=== PATIENT | female | born 1955 | race Caucasian/White ===

== ENCOUNTER 2021-06-23 12:31 | Day surgery (SDC) | payer OTHER, MEDICARE ==
[2021-06-19 16:21] LABS: Absolute Lymphocytes (CBC) 2.8 K/uL (0.7-4.9); Hematocrit 41.9 % (36.0-45.0); Lymphocytes % 33.5 % (15.3-44.8); MPV 6.7 fL (7.6-11.3); Protime INR 0.97; RBC Red Blood Cell Count 4.25 M/uL (3.86-4.86)
[2021-06-19 16:31] LABS: BUN Blood Urea Nitrogen 11 mg/dL (7-18); Bicarbonate 29 mmol/L (21-32); Glucose Level 92 mg/dL (74-106); Potassium 3.8 mmol/L (3.5-5.1); Sodium Level 140 mmol/L (136-145)
--- NOTE | 2021-06-19 16:39 | RAD REPORT ---
EXAM DESCRIPTION: Krystyna Angeles (2 Views)06/19/2021 4:15 pm CLINICAL HISTORY: Preop for bladder surgery COMPARISON: 2018 FINDINGS: Lungs are hyperaerated. The lungs appear clear of acute infiltrate. The heart is normal size IMPRESSION: No acute abnormalities displayed
--- NOTE | 2021-06-20 15:13 | EKG ---
Test Date: 2021-06-19 Test Time: 14:59:31 Hourly Shift: ROXANNA MEASUREMENT RESULTS: Intervals: Rate: 64 DE: 158 QRSD: 88 QT: 412 QTc: 425 [place]: P: 76 DE: 158 QRS: 34 T: 60 INTERPRETIVE STATEMENTS: Normal sinus rhythm Septal infarct, age undetermined Abnormal ECG Compared to ECG 12/14/2017 10:00:38 Ventricular premature complex(es) no longer present Myocardial infarct finding still present Electronically Signed On 06-20-21 15:10:56 CDT by Augustin Granados
[2021-06-23] MEDS ORDERED: Ringers Lactate 1,000 ML IV ONE ×2 (14:28→17:39)
[2021-06-23] MEDS ORDERED: CEFAZOLIN/SWI 1gm 1 GM/10 ML SYR ONE (14:29)
[2021-06-23] MEDS ORDERED: propofoL 200 MG/20 ML VIAL IV ONE (15:53)
[2021-06-23] MEDS ORDERED: FENTANYL CITR 100 MCG/2 ML ONE (15:53)
[2021-06-23] MEDS ORDERED: MIDAZOLAM HCL 2 MG/2 ML INJ ONE (15:53)
[2021-06-23] MEDS ORDERED: ONDANSETRON 4 MG/2 ML VIAL ONE (15:54)
[2021-06-23] MEDS ORDERED: LIDOCAINE 1% MPF 5 ML VIAL ONE (16:08)
[2021-06-23] MEDS: GEMCITABINE HCL 26.3 ML IVPB ONE ×3 (16:30→17:35)
[2021-06-23] MEDS ORDERED: GLYCOPYRROLATE 0.2 MG/ML SYR ONE ×3 (16:51→18:02)
[2021-06-23] MEDS ORDERED: ROCURONIUM 50 MG/5 ML VIAL IV ONE (16:52)
[2021-06-23] MEDS ORDERED: NEOSTIGMINE 1 MG/ML -5 ML ONE ×2 (17:21→18:02)
[2021-06-23] MEDS ORDERED: OPIUM/BELLADONNA SUPPOS (30-16.2 MG) PR ONE ×2 (17:55→18:19)
[2021-06-23] MEDS ORDERED: HYDROCODONE/APAP 5/325 MG TAB PO PRN (17:55)
--- NOTE | 2021-06-23 19:22 | OP ---
Date of Procedure: 06/23/2021 Surgeon: LUIS ALBERTO KOHLI Preoperative Diagnosis: Bladder tumor. Postoperative Diagnosis: Bladder tumor between 3-5 cm in diameter. Principal Procedure: Cystoscopy and transurethral resection of a bladder tumor, greater than 3 cm in diameter. Intravesical instillation of 2 g gemcitabine in 50 cc normal saline Indication For Procedure: Ms. Kim presented to the Urology Clinic with gross hematuria and underwent cystoscopic evaluation and upper tract imaging revealing the presence of a bladder tumor without upper tract lesion. She was counseled about the need for operative resection of the tumor, and because the tumor was overlying the right ureteral orifice, I counseled her explicitly about the risk of obstruction and subsequent development of hydronephrosis requiring placement of a percutaneous nephrostomy tube intervally. Procedure In Detail: The patient was consented in the preoperative holding area before being transferred to the operative suite where general anesthesia was induced. She was given Ancef 2 g IV antimicrobial prophylaxis and pneumo boots were provided for DVT prophylaxis. She was placed in the lithotomy position, padded and secured to the table appropriately. Her genitalia were prepped using Hibiclens and she was draped in standard fashion. The case was begun using urethral sounds to dilate the meatus and fossa, then dilate the meatus to 28- Taiwanese. I then inserted the 26-Taiwanese resectoscope using a visual obturator into her bladder with ease. I surveyed the bladder in its entirety, and the papillary tumor emanating from the right hemitrigone obscured the ureteral orifice on the right side completely and extended into the right lateral wall as well as the posterior wall of the bladder on the right side. The left ureteral orifice was uninvolved. I thus employed a thin bipolar loop and normal saline to began resecting the tumor superficially at first and then subsequently resecting the deeper tissue layers. All visible papillary tumor was removed and an effort to remove any thickened nodular tissue within the base of the bladder was also performed. In the end, all visible tumor had been resected and the base of the tumor and all bleeding vessels were carefully fulgurated. All tumor chips were removed using an Asterwikifolio evacuator by direct visualization grasping. I then copiously irrigated bladder to remove any circulating tumor cells and again surveyed the bladder for any additional mucosal lesions. When none were noted, and the entire base of the bladder was fulgurated well, I again surveyed and found the left ureteral orifice intact and undisturbed, but the right ureteral orifice was not visible. I thus placed an 18-Taiwanese Powell catheter into her bladder with ease and with 15 mL of sterile water into the balloon. I then decompressed her bladder completely and manually irrigated it using a 60 mL catheter tip syringe. This removed one additional bladder chip, which was sent for pathologic analysis. Otherwise, the urine and the irrigant fluid were completely clear. Once her bladder was completely decompressed, I then instilled the gemcitabine 2 g in 50 mL of normal saline into the bladder via her catheter. The catheter was clamped after being connected to a leg bag, and she was awakened after being taken out of the lithotomy position. She was transferred to a stretcher and then to the recovery room in good condition with the gemcitabine chemotherapy remaining in situ. Complications: None. Discharge Disposition: We will keep the urethral catheter in place for the next 10-14 days to allow healing of the bladder and re-mucosalization to occur. She will keep the gemcitabine intravesical for at least the next 60-90 minutes preferably and rotate by 1/4 turn every 15 minutes once she is awake enough to do so in PACU. She should subsequently follow up with nurse practitioner, Grisel for a voiding trial in 10-14 days, and she can see me back in followup to discuss the pathology somewhere between 2-3 weeks from surgery, but after the voiding trial is completed, it will only be about 1 week later. She will be discharged with a prescription for Keflex 500 mg twice daily for antimicrobial prophylaxis as well as [place] for pain. MAUREEN/MYNOR Voice ID: [id number] Report ID: [id number] GOLDEN
[2021-06-23] MEDS ORDERED: HYDROCODONE/APAP 5/325 MG TAB ONE (19:38)
[2021-06-23 19:44] VITALS: BP 130/75; TEMP 98.2; O2SAT 99
== END 2021-06-23 19:35 | disposition home or self-care (01) ==
LOC: OR 12:31
PROVIDERS: ATTEND Urology
PROC: 3E0M705 Introduction of Other Antineoplastic into Peritoneal Cavity, Via Natural or Artificial Opening (ICD-10-PCS; 2021-06-23)
PROC: 0T5B8ZZ Destruction of Bladder, Via Natural or Artificial Opening Endoscopic (ICD-10-PCS; principal; 2021-06-23 14:45)
DX: C67.9 Malignant neoplasm of bladder, unspecified (principal); Z20.822 Contact with and (suspected) exposure to COVID-19
CPT/HCPCS: 93005; 87088; 85025; 87086; 80048; 36415; 85610; 88307; 71046; 52235; U0003; J2704; J2250; J3010; J2710 ×2; J0690; J9201; J7120 ×2; J2405; 88305

== ENCOUNTER 2021-08-11 07:41 | Day surgery (SDC) | payer OTHER, MEDICARE ==
[2021-08-11] MEDS ORDERED: GEMCITABINE HCL 26.3 ML IVPB ONE (07:45)
[2021-08-11 08:22] VITALS: BP 129/72; TEMP 98.3; O2SAT 100; BMI 24.3
[2021-08-11 08:32] LABS: Urine Appearance CLEAR (Clear); Urine Bilirubin NEGATIVE (Negative); Urine Blood NEGATIVE (Negative); Urine Color YELLOW (Yellow); Urine Glucose NEGATIVE (Negative); Urine Protein NEGATIVE (Negative); Urine Specific Gravity <=1.005 (1.005-1.030); Urine Urobilinogen 0.2 mg/dL (0.2-1.0)
[2021-08-11 08:36] LABS: Urine Microscopic Reflex ORDER UMIC
[2021-08-11 09:24] LABS: Urine Bacteria <20 /HPF (<20); Urine RBC <5 /HPF (NONE SEEN); Urine Yeast PRESENT (NONE SEEN)
[2021-08-11] MEDS ORDERED: OPIUM/BELLADONNA SUPPOS (30-16.2 MG) PR ONE (10:08)
--- NOTE | 2021-08-11 17:46 | OP ---
Surgeon: LUIS ALBERTO KOHLI Preprocedure Diagnosis: Grade 2 papillary urothelial carcinoma, noninvasive. Postprocedure Diagnosis: Grade 2 papillary urothelial carcinoma, noninvasive. Principle Procedures: 1.Placement of urethral Powell catheter. 2.Instillation of intravesical gemcitabine chemotherapy 2 g in 50 cc normal saline. Indication For Procedure: Ms. Kim presented to the Urology Clinic with evidence of gross hematuri a and a large bladder tumor found to be superficial and noninvasive. It was grade 2 of 3, which trad itionally would have been considered high-grade, but now may be reassessed as intermediate grade dise ase. As a result, she was counseled about options for management to include intravesical chemotherap y versus immunotherapy, and she elected to proceed with intravesical gemcitabine chemotherapy, which I think would treat her best given the relatively intermediate grade nature of this noninvasive disea se. She presents today for a #1 of 6 weekly doses of an induction course of intravesical gemcitabine chemotherapy. Procedure In Detail: The patient was consented before being placed supine on the procedure table. H er genitalia were prepped using Betadine and draped in standard fashion. A 16-Maori urethral Powell catheter was placed into her bladder with ease and with return of clear urine. Her bladder was decom pressed of urine, and during that time, blue towels were placed around the edge of the urethral meatu s covering her introitus in the event of spillage via bladder spasm or other removal of the catheter allowing the chemotherapy to contact her skin. She had previously been given a dose of rectal B and O suppository to manage the bladder spasms and any pelvic pain. A urinalysis had been performed in a dvance, which showed evidence of trace leukocyte esterase, but less than 5 white blood cells per high -power field and no blood. As a result, once her bladder was decompressed, I retrograde instilled 2 g of gemcitabine and 50 cc normal saline and clamped the catheter. I then connected the catheter and clamped to a leg bag and the patient was then allowed to rotate by 1/4 turn every 15 minutes over e course of the next 60 minutes with a target to maintain the chemotherapy in her bladder for at leas t 90 minutes. Appropriate precautions of a barrier nature including face jensen, gowns and gloves w ere utilized throughout the procedure, and the chemotherapeutic waist was discarded in the yellow lilo motherapy bins as appropriate. The patient tolerated the procedure well and without complications. She was then discharged home in good condition. Disposition: She should follow up next week for instillation #2 of 6 of her induction course of gemc itabine. Subsequent cystoscopic evaluation should occur 3 months from her TURBT performed on 021. MAUREEN/MYNOR Voice ID: [id number] Report ID: [id number]
== END 2021-08-11 13:05 | disposition home or self-care (01) ==
LOC: DS 07:41
PROVIDERS: ATTEND Urology
PROC: 3E0M705 Introduction of Other Antineoplastic into Peritoneal Cavity, Via Natural or Artificial Opening (ICD-10-PCS; principal; 2021-08-11)
DX: D09.0 Carcinoma in situ of bladder (principal)
CPT/HCPCS: 87088; 87086; 96372; 51720; J9201; 81003; 81015

== ENCOUNTER 2021-11-24 09:30 | Day surgery (SDC) | payer OTHER, MEDICARE ==
--- NOTE | 2021-11-23 11:35 | EKG ---
Test Date: 2021-11-20 Test Time: 14:52:33 Energy Attorney: ROXANNA MEASUREMENT RESULTS: Intervals: Rate: 58 NM: 164 QRSD: 82 QT: 416 QTc: 408 [place]: P: 52 NM: 164 QRS: 12 T: 46 INTERPRETIVE STATEMENTS: Sinus bradycardia Nonspecific ST abnormality Abnormal ECG Compared to ECG 06/19/2021 14:59:31 ST (T wave) deviation now present Sinus rhythm no longer present Myocardial infarct finding no longer present Electronically Signed On 11-23-21 11:30:49 INSTRUMENT REPAIRER HELPER by Augustin Granados
[~2021-11-24 09:30] MED LIST: GEMCITABINE HCL 26.3 ML IVPB ONE
[2021-11-24] MEDS ORDERED: Ringers Lactate 1,000 ML IV ONE (09:54)
[2021-11-24] MEDS ORDERED: CEFAZOLIN/NS 1gm 1 GM/50 ML BAG ONE (09:55)
[2021-11-24] MEDS ORDERED: ACETAMINOPHEN 500 MG TAB ONE (11:27)
[2021-11-24] MEDS ORDERED: DIAZEPAM 5 MG TABLET ONE (11:27)
[2021-11-24] MEDS ORDERED: propofoL 200 MG/20 ML VIAL IV ONE (11:29)
[2021-11-24] MEDS ORDERED: dexAMETHasone 10 MG/ML VIAL ONE (11:29)
[2021-11-24] MEDS ORDERED: MIDAZOLAM HCL 2 MG/2 ML INJ ONE (11:29)
[2021-11-24] MEDS ORDERED: KETOROLAC 30 MG/ML INJ ONE (11:29)
[2021-11-24] MEDS ORDERED: FENTANYL CITR 100 MCG/2 ML ONE (11:29)
[2021-11-24] MEDS ORDERED: LIDOCAINE 1% MPF 5 ML VIAL ONE ×2 (11:29→11:31)
[2021-11-24] MEDS ORDERED: ONDANSETRON 4 MG/2 ML VIAL ONE (11:30)
[2021-11-24] MEDS ORDERED: OPIUM/BELLADONNA SUPPOS (30-16.2 MG) PR ONE ×2 (12:06→12:10)
[2021-11-24] MEDS ORDERED: PHENAZOPYRIDINE 100MG TAB PO ONE (12:06)
[2021-11-24] MEDS ORDERED: TRAMADOL 37.5mg/APAP 325mg PER TAB PO ONE (12:06)
[2021-11-24] MEDS ORDERED: EPHEDRINE SULF 50 MG/ML VIAL ONE (12:44)
[2021-11-24 13:07] VITALS: O2SAT 100
--- NOTE | 2021-11-24 13:40 | OP ---
Surgeon: LUIS ALBERTO KOHLI Preoperative Diagnoses: 1.Urothelial carcinoma of the bladder. 2.Bladder lesion. Postoperative Diagnoses: 1.Urothelial carcinoma of the bladder. 2.Bladder lesion. Principle Procedures: 1.Cystoscopy with bladder biopsies and fulguration. 2.Placement of urethral Powell catheter. 3.Instillation of gemcitabine 2 g and 50 cc normal saline intravesical chemotherapy. Indication For Procedure: Ms. Kim is a 66-year-old woman, who presented to the Urology Clinic wit h gross hematuria and evidence of a bladder tumor. She underwent resection of that tumor revealing n oninvasive urothelial carcinoma of the bladder. She subsequently underwent induction of gemcitabine chemotherapy over the course of 6 weeks, which she tolerated well. Subsequent cystoscopically follow up was performed and did not reveal any evidence of regrowth of any papillary tumor throughout the bl adder, but there was a tiny little erythematous spot approximately 2 mm around the right ureteral elen fice. Because we could not be certain as to the significance of this lesion seen, urine genetic test ing using Cxbladder monitor was performed and did suggest a slight increased today propensity for the re being urothelial carcinoma. As a result, we recommended biopsy of the lesion. Following that, nafisa monge would receive the intravesical gemcitabine as she would be due for her monthly maintenance dose. Procedure In Detail: The patient was consented in the preoperative holding area before being transfe rred to the operative suite where general anesthesia was induced. She was given Ancef IV antimicrobi al prophylaxis and pneumo boots were provided for DVT prophylaxis. She was placed in the lithotomy p osition, padded and secured to the table appropriately. Her genitalia were prepped using Hibiclens a nd draped in standard fashion. The case was begun using a 22-Faroese rigid cystoscope to traverse the urethra and into the bladder with ease. The bladder was surveyed in its entirety, and there were no papillary mucosal lesions, foreign bodies or stones noted throughout. As had previously been observ ed, lateral to the right ureteral orifice was an approximately 2 mm erythematous patch which on close r inspection appeared to be hemosiderin likely within the mucosa. This had not changed significantly from when it was observed preoperatively in an outpatient cystoscopy. The area along with other are as around the ureteral orifice where the tumor had been resected was biopsied and 3 specimens were se nt for pathologic analysis. The area was then fulgurated using a Bugbee electrode at a cautery of 30 . Once hemostatic, I then placed an 18-Faroese catheter into her bladder with ease and placed 15 cc o f sterile water in the balloon. The catheter was then allowed to decompress the bladder, and I retro grade instilled 2 g of gemcitabine and 50 cc normal saline. She tolerated the instillation well and the procedure went along without any complications. Of note, I applied a belladonna and opiate suppo sitory intraanally prior to instillation of the chemotherapy. The catheter was clamped and connected to a leg bag for ease of drainage later. The catheter and the leg bag were wrapped in fluid in perm eable drapery, and her genitalia was toweled off using green towels to absorb any leakage. The patie nt was then taken out of the lithotomy position, awakened from general anesthesia, transferred to a virtua marlton, and then transferred to the recovery room in good condition. Complications: None. Discharge Disposition: She will maintain the intravesical chemotherapy for 60 minutes minimum to 90 minutes desired. This will then be evacuated, and she may be discharged per protocol. Followup may then be established in 2-3 weeks' time to discuss results of the pathology. Subsequent maintenance g emcitabine will be planned 1 month from this procedure, around December 22, 2021. MAUREEN/MYNOR Voice ID: [id number] Report ID: [id number]
[2021-11-24 15:39] VITALS: BP 89/76; TEMP 98.5
== END 2021-11-24 14:25 | disposition home or self-care (01) ==
LOC: OR 09:30
PROVIDERS: ATTEND Urology
PROC: 3E0K805 Introduction of Other Antineoplastic into Genitourinary Tract, Via Natural or Artificial Opening Endoscopic (ICD-10-PCS; 2021-11-24)
PROC: 0TBB8ZX Excision of Bladder, Via Natural or Artificial Opening Endoscopic, Diagnostic (ICD-10-PCS; principal; 2021-11-24 10:30)
DX: C67.9 Malignant neoplasm of bladder, unspecified (principal); N32.9 Bladder disorder, unspecified; Z20.822 Contact with and (suspected) exposure to COVID-19
CPT/HCPCS: 87086; 87088; 88305; 93005; J0690; J1100; J2250; J2405; J2704; J3010; J7120; J9201; U0003

== ENCOUNTER 2021-12-22 08:41 | Day surgery (SDC) | payer OTHER, MEDICARE ==
[2021-12-22] MEDS ORDERED: GEMCITABINE HCL 26.3 ML IVPB ONE (09:00)
[2021-12-22 09:07] LABS: Urine Appearance CLEAR (Clear); Urine Bilirubin NEGATIVE (Negative); Urine Blood NEGATIVE (Negative); Urine Color YELLOW (Yellow); Urine Glucose NEGATIVE (Negative); Urine Protein NEGATIVE (Negative); Urine Specific Gravity <=1.005 (1.005-1.030); Urine Urobilinogen 0.2 mg/dL (0.2-1.0)
[2021-12-22] MEDS ORDERED: OPIUM/BELLADONNA SUPPOS (30-16.2 MG) PR ONE (09:08)
[2021-12-22 09:22] LABS: Urine Microscopic Reflex NO UMIC
[2021-12-22 09:25] VITALS: BP 126/92; TEMP 96; O2SAT 99; BMI 23.3
--- NOTE | 2021-12-22 20:00 | PN ---
Preoperative Diagnosis: Urothelial carcinoma of the bladder, noninvasive. Principal Procedure: 1.Instillation of intravesical gemcitabine chemotherapy 2 g in 50 cc normal saline. 2.Insertion of urethral Powell catheter. Indication For Procedure: Ms. Kim has undergone transurethral resection of a large bladder tumor occupying her right lateral wall of the bladder. The pathology revealed noninvasive urothelial carci noma, and she was counseled on options for management and prevention of recurrence. Intravesical lilo motherapy with gemcitabine was selected, and she completed an induction course. Subsequent followup cystoscopic evaluation revealed the presence of a slightly pigmented erythematous region lateral to t he right ureteral orifice; so, repeat cystoscopy and biopsies were performed along with intravesical gemcitabine administration a month ago. This revealed only hemosiderin pigment without evidence of m alignancy; so, she presents today for the second monthly instillation targeting 1 year from the initi ation of the induction course of monthly gemcitabine instillations. Description Of Procedure: The patient was consented before being placed supine on the procedure tabl e. Her genitalia were prepped with Betadine and draped in standard fashion. A 16-Kuwaiti urethral Fo douglas catheter was placed into her bladder, and 20 cc of sterile water was placed in the balloon. The bladder was decompressed of fluid and urine, and then her genitalia were toweled off. A fluid imperm eable drape was placed over her body and a splash free facial was used to cover her head. I then eliza floyd instilled gemcitabine 2 g and 50 cc normal saline into her bladder with ease, and she tolerat ed the procedure well. She was then allowed to rotate by 1/4 turn over the course of the next hour t argeting between 60 and 90 minutes of instillation. The catheter was then unclamped, the fluid evacu ated into a leg bag, and the catheter removed. The patient tolerated the procedure well and without complications. She was discharged from the day surgery procedure area in good condition. Discharge Disposition: Follow up in 1 month for the next intravesical gemcitabine instillation. Rep eat cystoscopy in early February. MAUREEN/MODL Voice ID: [id number] Report ID: [id number]
== END 2021-12-22 12:55 | disposition home or self-care (01) ==
LOC: DS 08:41
PROVIDERS: ATTEND Urology
PROC: 3E0K705 Introduction of Other Antineoplastic into Genitourinary Tract, Via Natural or Artificial Opening (ICD-10-PCS; principal; 2021-12-22)
DX: D09.0 Carcinoma in situ of bladder (principal)
CPT/HCPCS: 81003; 96365; 96366; 51720; J9201

== ENCOUNTER 2022-02-09 11:10 | Day surgery (SDC) | payer OTHER, MEDICARE ==
[2022-02-09 11:39] LABS: Urine Appearance Clear (Clear); Urine Bilirubin Negative (Negative); Urine Blood Negative (Negative); Urine Color Yellow (Yellow); Urine Glucose Negative (Negative); Urine Protein Negative (Negative); Urine Specific Gravity 1.015 (1.005-1.030); Urine Urobilinogen 0.2 mg/dL (0.2-1.0)
[2022-02-09] MEDS ORDERED: OPIUM/BELLADONNA SUPPOS (30-16.2 MG) PR ONE (11:41)
[2022-02-09 11:47] LABS: Urine Microscopic Reflex NO UMIC
[2022-02-09] MEDS ORDERED: GEMCITABINE HCL 26.3 ML IVPB ONE (12:00)
[2022-02-09 16:00] VITALS: BP 112/75; TEMP 98.1; O2SAT 99; BMI 23.3
== END 2022-02-09 14:20 | disposition home or self-care (01) ==
LOC: DS 11:10
PROVIDERS: ATTEND Urology
PROC: 3E0K705 Introduction of Other Antineoplastic into Genitourinary Tract, Via Natural or Artificial Opening (ICD-10-PCS; principal; 2022-02-09)
DX: C67.9 Malignant neoplasm of bladder, unspecified (principal); Z88.6 Allergy status to analgesic agent; Z88.1 Allergy status to other antibiotic agents
CPT/HCPCS: 81003; 96365; 51720; J9201

== ENCOUNTER 2025-05-31 08:54 | Day surgery (SDC) | payer OTHER, MEDICARE ==
[2025-05-29 14:10] LABS: Absolute Lymphocytes (CBC) 2.1 K/uL (0.7-4.9); Hematocrit 42.2 % (36.0-45.0); Hemoglobin 14.3 g/dL (12.0-15.0); MCH 33.0 pg (27.0-35.0); MCHC 33.8 g/dL (32.0-36.0); MCV 97.6 fL (80-100); MPV 7.0 fL (7.6-11.3); Nucleated RBC Absolute Count 0.0 (0-0); Nucleated Red Blood Cells % 0.0 % (0-0); RBC Red Blood Cell Count 4.33 M/uL (3.86-4.86); White Blood Count 7.90 thou/uL (4.3-10.9)
[2025-05-29 14:26] LABS: Anion Gap 8.9 mEq/L (5.0-15.0); BUN Blood Urea Nitrogen 11.0 mg/dL (7-18); Glucose Level 109.0 mg/dL (74-106); Potassium 3.9 mEq/L (3.5-5.1)
[2025-05-31] MEDS: Ringers Lactate 1,000 ML IV ONE (09:30)
[2025-05-31] MEDS: OXYMETAZOLINE HCL 0.05% 30ML NAS ONE (09:40)
[2025-05-31] MEDS ORDERED: LIDOCAINE HCL/EPINEPHRINE 20 ML MDV ONE (10:14)
[2025-05-31] MEDS ORDERED: BUPIVACAINE 0.5% PF 10 ML VIAL ONE (10:15)
[2025-05-31] MEDS ORDERED: FENTANYL CITR 100 MCG/2 ML ONE (10:39)
[2025-05-31] MEDS ORDERED: LIDOCAINE 1% MPF 5 ML VIAL ONE (10:39)
[2025-05-31] MEDS ORDERED: MIDAZOLAM HCL 2 MG/2 ML INJ ONE (10:48)
[2025-05-31] MEDS ORDERED: ROCURONIUM 50 MG/5 ML VIAL IV ONE (10:48)
--- NOTE | 2025-05-31 11:48 | P.OP ---
Process Chemist: NONE,NONE Preoperative diagnosis: Nasopharyngeal mass Postoperative diagnosis: Same Primary procedure: Nasopharyngoscopy with biopsy of visible lesion Anesthesia: General Estimated blood loss: 5 mL Specimen: Nasopharyngeal mass Findings: Prominent mass of roof of nasopharynx, R SER thick mucoid drainage Operative Technique: After adequate plane of anesthesia was achieved via endotracheal intubation, the head of bed was turned 90 degrees. The nasal hairs were not prominent and did not require trimming. The 0 degree endoscope was used to perform an nasopharyngoscopy. The inferior meatus, inferior turbinate, middle meatus and middle turbinate were normal on both the right and left side. The left sphenoethmoid recess was unremarkable. The right sphenoethmoid recess demonstrated thick mucopurulent appearing fluid. The eustachian tube openings and torus tubarius appeared unremarkable. There was a well-healed presumed adenoidectomy scar noted in the midline at the midportion of the nasopharynx. Superior to this scar, there was prominent tissue on the roof of the nasopharynx which occupied the right and left side but did not appear to extend significantly into the fossa of Rosenmuller. The tissue appeared slightly cystic on the left side. Photodocumentation was obtained. A BlaSleek Audioley forcep was used to obtain a biopsy from the medial and right aspect of the mass. Afrin-soaked pledget was applied to the biopsy site to aid in hemostasis. While awaiting effect of medication and pressure, a straight suction was used to clear the sphenoethmoid recess. There was no visible mass extending into the sphenoethmoid recess. Afrin soaked pledget was applied to the sphenoethmoid recess due to mucosal oozing after suctioning. After several minutes the pledgets were removed and the biopsy site was cauterized using suction Bovie cautery. Overall blood loss was minimal. Due to oozing in the right sphenoethmoid recess, a PosiSep resorbable nasal dressing was passed into the right nasal cavity and advanced into the sphenoethmoid recess and saturated with sterile saline. On reexamination the area appeared hemostatic and the procedure was concluded. The patient was returned to care of anesthesia for awakening extubation in the operating room which proceeded without complication. Complications: None Implants: None Fluids & blood products: See anesthesia record Transferred to: Recovery Room Condition: Good
[2025-05-31] MEDS: MORPHINE 2 MG/ML SYR ONE (12:00)
[2025-05-31 12:19] VITALS: O2SAT 98
[2025-05-31 12:43] VITALS: BP 146/66; TEMP 97.6
== END 2025-05-31 13:28 | disposition home or self-care (01) ==
LOC: OR 08:54
PROVIDERS: ATTEND Otolaryngology
PROC: 09BN8ZX Excision of Nasopharynx, Via Natural or Artificial Opening Endoscopic, Diagnostic (ICD-10-PCS; principal; 2025-05-31 10:15)
DX: J34.89 Other specified disorders of nose and nasal sinuses (principal)
CPT/HCPCS: 42804; 93005; 85025; 80048; 36415; 88305; J2704; J2003; J3010; J2270; J7120; J2250

== ENCOUNTER 2025-07-23 08:19 | Day surgery (SDC) | payer OTHER, MEDICARE ==
[2025-07-16 10:43] LABS: Absolute Lymphocytes (CBC) 2.1 K/uL (0.7-4.9); Hematocrit 39.9 % (36.0-45.0); Hemoglobin 13.6 g/dL (12.0-15.0); MCH 33.7 pg (27.0-35.0); MCHC 34.1 g/dL (32.0-36.0); MCV 98.9 fL (80-100); MPV 7.6 fL (7.6-11.3); Nucleated RBC Absolute Count 0.0 (0-0); Nucleated Red Blood Cells % 0.0 % (0-0); RBC Red Blood Cell Count 4.03 M/uL (3.86-4.86); White Blood Count 7.60 thou/uL (4.3-10.9)
[2025-07-16 10:49] LABS: Sqamous Epithelial <5 /HPF (None Seen); Urine Crystals Unidentified Few /HPF (None Seen); Urine Culture Reflex Order REFLEXED; Urine Microscopic Reflex YN ORDER UMIC; Urine WBC Clump Moderate /HPF (None Seen); Urine Yeast (Budding) Occasional /HPF (None Seen)
[2025-07-16 10:49] LABS: PT Prothrombin Time 11.2 SECONDS (10-13.0); Protime INR 0.99
[2025-07-16 11:00] LABS: Anion Gap 9.9 mEq/L (5.0-15.0); BUN Blood Urea Nitrogen 9.0 mg/dL (7-18); Glucose Level 98.0 mg/dL (74-106); Potassium 3.9 mEq/L (3.5-5.1)
[2025-07-23] MEDS: Ringers Lactate 1,000 ML IV ONE (08:45)
[2025-07-23] MEDS ORDERED: ONDANSETRON 4 MG/2 ML VIAL ONE (09:29)
[2025-07-23] MEDS ORDERED: LIDOCAINE 1% MPF 5 ML VIAL ONE (09:29)
[2025-07-23] MEDS ORDERED: MIDAZOLAM HCL 2 MG/2 ML INJ ONE (09:29)
[2025-07-23] MEDS ORDERED: FENTANYL CITR 100 MCG/2 ML ONE (09:29)
[2025-07-23] MEDS ORDERED: SUCCINYLCHOLINE 200 MG/10 ML 200 MG/10 ML SYR IV ONE (09:32)
[2025-07-23] MEDS: GENTAMICIN 80 MG/100 ML BAG 160 MG/200 ML BAG IV ONE (10:14)
[2025-07-23] MEDS ORDERED: EPHEDRINE SULF 50 MG/ML VIAL ONE (10:21)
[2025-07-23] MEDS: AMPICILLIN SODIUM 2 GM/VIAL VIAL ONE (10:25)
[2025-07-23] MEDS: MITOMYCIN IV ONE (10:46)
[2025-07-23] MEDS: NA CHLORIDE 0.9% IV ONE (10:46)
[2025-07-23] MEDS ORDERED: DIAZEPAM 5 MG TABLET PO ONE (12:10)
--- NOTE | 2025-07-23 12:25 | RAD REPORT ---
Fluoroscopy time 45 seconds
[2025-07-23] MEDS ORDERED: OXYBUTYNIN ER 5 MG TAB PO ONE (13:22)
[2025-07-23] MEDS ORDERED: TRAMADOL 37.5mg/APAP 325mg PER TAB ONE (13:22)
--- NOTE | 2025-07-23 13:29 | P.OP ---
Date of Service: 07/23/25 Preoperative diagnoses: Right distal ureteral low-grade urothelial carcinoma History of urothelial carcinoma of the bladder History of recurrent UTIs Postoperative diagnoses: Right distal ureteral low-grade urothelial carcinoma History of urothelial carcinoma of the bladder History of recurrent UTIs Principal procedures: Cystoscopy Right ureteroscopy with ureteroscopic biopsy and fulguration of distal ureteral urothelial carcinoma Right 8 Egyptian by 26 cm double-J ureteral stent Insertion of 18 Egyptian urethral Powell catheter Intrarenal to the intravesical administration of mitomycin C 40 mg and 20 cc sterile H2O Indications for procedure: 69-year-old woman with history of bladder cancer undergoing surveillance was found to have a papillary tumor emanating from the right ureteral orifice. Upper tract imaging via CT urography did not identify any evidence of a filling defect, but the tumor was visible emanating from the right ureteral orifice. She was subsequently taken for operative evaluation and resection of the ureteral orifice, which was done to the thinnest level of muscularis propria, but still there was papillary neoplasm bulging from within the distal aspect of the ureter extramurally. Once the pathology resulted in low-grade urothelial carcinoma, she was counseled on options to include the most aggressive, nephro ureterectomy, versus a moderate approach, distal ureterectomy and reimplantation, versus an attempt at endoscopic management via ablation and adjuvant chemo ablation via Mitomycin-C. She elected the latter approach. Procedure note: The patient was consented in the preoperative holding area before being transferred to the operative suite where general anesthesia was induced. She was given ampicillin 2 g and gentamicin 160 mg IV antimicrobial prophylaxis, and pneumoboots were provided for DVT prophylaxis. She was placed in the lithotomy position, padded and secured to the table appropriately. Her genitalia was prepped with Hibiclens and she was draped in standard fashion. The case was begun using a 22 Egyptian rigid cystoscope to traverse the urethra and into the bladder with ease. The bladder was decompressed of fluid and urine and surveyed. While there were no papillary mucosal lesions, foreign bodies, or stones noted throughout the bladder, emanating from the resected right ureteral orifice, there was still a degree of papillary tumor visible. As a result, I utilized a 5 Egyptian ureteral access catheter to direct a sensor wire into the right distal ureter and was able to navigate it with ease into the collecting system putatively as observed fluoroscopically. Alongside the wire, I then utilized the semirigid ureteroscope and sterile water as irrigation, and I advanced the semirigid ureteroscope next to the wire into the distal ureter and pushed past the tumor in that location into the mid distal ureter. I then surveyed after decompressing the system passively via the ureteroscope, all the way into the mid proximal ureter, and no additional tumor was seen. I did not survey into the renal pelvis and calyces on this occasion. Prior CT urography again was negative. As a result, I then marked the proximalmost extent of the ureteral involvement fluoroscopically and then marked the distalmost extent fluoroscopically, asking the radiologist to provide a measurement of the distance in between. 37 mm was for distance involving the distal ureter. As a result, I then utilized [employer] cold cup biopsy forceps to sample along the papillary component of the tumor in the distal ureter taking at least 3 samples, which were sent for pathologic analysis. I then utilized a ureteroscopic Bugbee electrode at a cautery setting of 30 coag and 30 cut, to destroy using cut current the visible tumor throughout the affected area. Once I was done with this, there was no significant papillary intrusion into the urethral lumen, and I utilized a ureteral access sheath with the inner obturator removed in order to try to scrape away the fulgurated tissue from the base of the distal ureter. All this tissue was delivered into the bladder which was subsequently collected and sent for pathologic analysis. I then advanced the ureteral access sheath into the collecting system over the safety wire, and I decompressed the collecting system in case any tumor tissue floated into that area. I then placed back the sensor wire and also placed a Bentson guidewire into the collecting system as observed fluoroscopically, and I remove the ureteral access sheath and passed an 8 Egyptian by 26 cm double-J ureteral stent over the sensor wire into the collecting system, passing a 5 Egyptian ureteral access catheter over the Bentson guidewire similarly into the collecting system. Both were allowed to decompress for several minutes while I irrigated the bladder to remove any circulating tumor tissue. I then placed a 18 Egyptian urethral Powell catheter into her bladder with 10 cc sterile water in the balloon, and clamped the catheter after the bladder was decompressed, connecting the catheter to a leg bag for subsequent ease of decompression. I then utilized a 5 Egyptian ureteral access catheter to instill the 40 mg of Mitomycin-C and 20 cc sterile water into the renal pelvis and calyces directly, about 10 cc was administered, before I then backed the 5 Egyptian ureteral access catheter into the mid proximal and mid ureter, where I injected the remaining 10 cc of the Mitomycin-C solution. I removed the 5 Egyptian ureteral access catheter and this carted it i nto chemotherapeutic waste. I then toweled off the patient's genitalia and placed the catheter and the associated leg bag into fluid impermeable drapery before taking the patient out of the lithotomy position. She was then awakened from general anesthesia, transferred to a stretcher, and then transferred to the recovery room in good condition. Complications: None Discharge disposition: We will plan to continue with once a week Mitomycin-C for the next 5 weeks for the completion of an induction course. Subsequently, I will see the patient in follow-up and preoperative preparation in 2 to 3 months, where I will arrange for the patient to obtain a CT of the abdomen and pelvis with IV contrast to assess for any extramural disease before ultimately taking the patient back for definitive evaluation of the right upper tract via ureteroscopy with pyeloscopy in 3 months from now. Additionally, I am discharging the patient with a prescription for Bactrim DS for once daily prophylaxis to start after she finishes the amoxicillin treatment of her pre-existing UTI, given the presence of the stent and the risk of upper tract infection given her history of recurrent UTIs.
[2025-07-23] MEDS: OXYBUTYNIN ER 5 MG TAB PO ONE (13:35)
[2025-07-23] MEDS: TRAMADOL 37.5mg/APAP 325mg PER TAB PO ONE (13:35)
[2025-07-23 13:53] VITALS: BP 130/72; TEMP 97; O2SAT 98
== END 2025-07-23 13:41 | disposition home or self-care (01) ==
LOC: OR 08:19
PROVIDERS: ATTEND Urology
PROC: 3E0 Administration, Physiological Systems and Anatomical Regions, Introduction (ICD-10-PCS; 2025-07-23)
PROC: 0TBD8ZX Excision of Urethra, Via Natural or Artificial Opening Endoscopic, Diagnostic (ICD-10-PCS; principal; 2025-07-23 09:45)
PROC: 0T768DZ Dilation of Right Ureter with Intraluminal Device, Via Natural or Artificial Opening Endoscopic (ICD-10-PCS; 2025-07-23 09:45)
DX: C66.1 Malignant neoplasm of right ureter (principal); Z85.51 Personal history of malignant neoplasm of bladder; Z87.440 Personal history of urinary (tract) infections
CPT/HCPCS: 87088; 85025; 81001; 87086; 80048; 36415; 85610; 88305; 87077; 87186; 74450; 51610; 52204; 52332; 51720; J2704; J2003; J2250; J3010; J1100; J2405; J0290; J7120; J1580; J0330